=== PATIENT | male | born 1970 | race Caucasian/White ===

== ENCOUNTER 2023-10-27 19:57 | Inpatient (IN) | payer OTHER ==
[2023-10-27] MEDS: cloNIDine HCL 0.1 MG TABLET PO ONE (15:30)
[~2023-10-27 19:57] MED LIST: cloNIDine HCL 0.1 MG TABLET ONE
[2023-10-27] MEDS ORDERED: NALOXONE (NYS OPIOID OVERDOSE PROGRAM) 4 MG/0.1 ML SPRAY NS PRN (20:50)
[2023-10-27] MEDS ORDERED: NALOXONE HCL 0.4 MG/ML VIAL IVPUSH PRN (20:50)
[2023-10-27] MEDS ORDERED: IBUPROFEN 400 MG TABLET (FP) PO PRN (20:50)
[2023-10-27] MEDS ORDERED: guaiFENesin 600 MG TABLET.ER (FP) PO PRN (20:50)
[2023-10-27] MEDS ORDERED: POLYETHYLENE GLYCOL (HEALTHYLAX) 3350 17 GM PACKET PO PRN (20:50)
[2023-10-27] MEDS ORDERED: NICOTINE POLACRILEX 2 MG GUM BUC PRN (20:50)
[2023-10-27] MEDS ORDERED: BENZONATATE 200 MG CAPSULE PO PRN (20:50)
[2023-10-27] MEDS ORDERED: LOPERAMIDE HCL 2 MG CAPSULE PO PRN (20:50)
[2023-10-27] MEDS ORDERED: ACETAMINOPHEN 325 MG TABLET (FP) PO PRN (20:50)
[2023-10-27] MEDS ORDERED: BENZOCAINE/MENTHOL (CHLORASEPTIC ) LOZENGE MM PRN (20:50)
[2023-10-27] MEDS ORDERED: P-EPHED 60MG/TRIPROLIDI 2.5MG TABLET PO PRN (20:50)
[2023-10-27] MEDS ORDERED: DOCUSATE SODIUM 100 MG CAPSULE (FP) PO PRN (20:50)
[2023-10-27] MEDS ORDERED: cloNIDine HCL 0.1 MG TABLET ONE (22:41)
[2023-10-27] MEDS ORDERED: MELATONIN 5 MG TABLETS ONE (22:41)
[2023-10-27] MEDS: THIAMINE 100 MG TABLET PO SCH (22:45)
[2023-10-27] MEDS: MELATONIN 5 MG TABLETS PO SCH (22:45)
[2023-10-27] MEDS: cloNIDine HCL 0.1 MG TABLET PO PRN (22:45)
[2023-10-28] MEDS: PRENATAL VITAMINS W/ FOLIC ACID TABLET (FP) PO SCH (10:08)
[2023-10-28] MEDS ORDERED: methaDONE HCL 10 MG TABLET PO SCH (10:15)
[2023-10-28] MEDS: MAG HYDROX/AL HYDROX/SIMETH 30 ML UNIT-DOSE CUP PO PRN (16:35)
[2023-10-28] MEDS: METHOCARBAMOL 500 MG TABLET PO PRN (21:20)
[2023-10-30] MEDS: MAGNESIUM HYDROX 2400MG/30ML ORAL SUSPENSION 30 ML CUP PO PRN (06:15)
[2023-10-30] MEDS ORDERED: SUCRALFATE 1 GM TABLET (FP) PO PRN (13:58)
[2023-10-30] MEDS: LISINOPRIL 5 MG TABLET PO ONE (14:45)
[2023-10-30] MEDS: PANTOPRAZOLE 20 MG TABLET PO SCH (14:45)
[2023-11-03] MEDS: IBUPROFEN 600 MG TABLET (FP) PO PRN (21:23)
[2023-11-10 07:10] VITALS: TEMP 97.5
[2023-11-10 09:01] VITALS: BP 130/86; PULSE 65; RESP 18
== END 2023-11-10 10:17 | disposition home or self-care (01) | DRG 895 ==
LOC: YASAS 19:57 → Y3W 22:52
PROVIDERS: ADMIT Allergy & Immunology; ATTEND Psychiatry & Neurology Pain Medicine
PROC: HZ42ZZZ Group Counseling for Substance Abuse Treatment, Cognitive-Behavioral (ICD-10-PCS; principal; 2023-10-27)
DX: F14.20 Cocaine dependence, uncomplicated (principal); F11.20 Opioid dependence, uncomplicated; F19.282 Other psychoactive substance dependence with psychoactive substance-induced sleep disorder; Z59.02 Unsheltered homelessness; F17.210 Nicotine dependence, cigarettes, uncomplicated; F43.10 Post-traumatic stress disorder, unspecified; G47.00 Insomnia, unspecified; I10 Essential (primary) hypertension
CPT/HCPCS: 36415; 80053; 80305; 80307; 82550; 82553; 83690; 83735; 84484; 85025; 87811; 93005; 93010; 99284-25; J0131

== ENCOUNTER 2024-04-02 13:38 | Inpatient (IN) | payer OTHER ==
[2024-04-02 14:50] VITALS: BMI 17.7
[2024-04-02] MEDS ORDERED: BENZOCAINE/MENTHOL (CHLORASEPTIC ) LOZENGE MM PRN (15:22)
[2024-04-02] MEDS ORDERED: BENZONATATE 200 MG CAPSULE PO PRN (15:22)
[2024-04-02] MEDS ORDERED: POLYETHYLENE GLYCOL (HEALTHYLAX) 3350 17 GM PACKET PO PRN (15:22)
[2024-04-02] MEDS ORDERED: ACETAMINOPHEN 325 MG TABLET (FP) PO PRN (15:22)
[2024-04-02] MEDS ORDERED: LOPERAMIDE HCL 2 MG CAPSULE PO PRN (15:22)
[2024-04-02] MEDS ORDERED: NALOXONE (NARCAN) HCL 4 MG/0.1 ML SPRAY NS PRN (15:22)
[2024-04-02] MEDS ORDERED: NICOTINE POLACRILEX 2 MG LOZENGE BC PRN (15:22)
[2024-04-02] MEDS ORDERED: MAGNESIUM HYDROX 2400MG/30ML ORAL SUSPENSION 30 ML CUP PO PRN (15:22)
[2024-04-02] MEDS ORDERED: IBUPROFEN 400 MG TABLET (FP) PO PRN (15:22)
[2024-04-02] MEDS ORDERED: guaiFENesin 600 MG TABLET.ER (FP) PO PRN (15:22)
[2024-04-02] MEDS ORDERED: IBUPROFEN 600 MG TABLET (FP) PO PRN (15:22)
[2024-04-02] MEDS ORDERED: NICOTINE POLACRILEX 2 MG GUM BUC PRN (15:22)
[2024-04-02] MEDS: cloNIDine HCL 0.1 MG TABLET PO ONE (16:10)
[2024-04-02 17:40] LABS: HEMATOCRIT 34.2 % (35.4-49); HEMOGLOBIN 11.7 GM/dL (11.7-16.9); MCH 30.7 pg (25.7-33.7); MCHC 34.3 g/dl (32.0-35.9); MEAN CELL VOLUME 89.7 fl (80-96); MEAN PLT VOLUME 7.9 fl (7.5-11.1); PLATELET COUNT 296 10^3/uL (134-434); RBC 3.81 M/mm3 (4.00-5.60); RDW 14.5 % (11.9-15.9); WHITE BLOOD COUNT 6.3 K/mm3 (4.0-10.0)
[2024-04-02 18:06] LABS: BLOOD UREA NITROGEN 31.6 mg/dL (7-18); CALCIUM 9.1 mg/dL (8.5-10.1)
[2024-04-02 18:07] LABS: ALBUMIN 3.4 g/dl (3.4-5.0)
[2024-04-02 18:10] LABS: BILIRUBIN,TOTAL 0.4 mg/dL (0.2-1); CREATININE 1.5 mg/dL (0.55-1.3)
[2024-04-02 18:11] LABS: TOT PROT 5.7 g/dl (6.4-8.2)
[2024-04-02] MEDS: THIAMINE 100 MG TABLET PO SCH (21:36)
[2024-04-02] MEDS: MELATONIN 5 MG TABLETS PO SCH (21:36)
[2024-04-03 00:21] LABS: PH,URINE 6.5 (5.0-8.0); URINE APPEARANCE CLEAR; URINE BILIRUBIN NEGATIVE (NEGATIVE); URINE COLOR YELLOW; URINE GLUCOSE (UA) 1+ (NEGATIVE); URINE KETONE NEGATIVE (NEGATIVE); URINE LEUK ESTERASE NEGATIVE (NEGATIVE); URINE NITRITE NEGATIVE (NEGATIVE); URINE PROTEIN NEGATIVE (NEGATIVE); URINE UROBILINOGEN 0.2 mg/dL (0.2-1.0)
[2024-04-03] MEDS: MAG HYDROX/AL HYDROX/SIMETH 30 ML UNIT-DOSE CUP PO PRN (00:47)
[2024-04-03] MEDS: PRENATAL VITAMINS W/ FOLIC ACID TABLET (FP) PO SCH (10:37)
[2024-04-03] MEDS: methaDONE HCL 40 MG DISPERSABLE TABLET PO SCH (10:37)
[2024-04-06] MEDS ORDERED: TUBERCULIN PPD 5 TU/0.1ML VIAL ID ONE (11:00)
[2024-04-06] MEDS: TUBERCULIN PPD 5 TU/0.1ML VIAL ID ONE (11:03)
[2024-04-07 06:37] VITALS: RESP 18
[2024-04-08 06:53] VITALS: BP 134/89; PULSE 68; TEMP 97.4
[2024-04-08] MEDS: NALOXONE (NYS OPIOID OVERDOSE PROGRAM) 4 MG/0.1 ML SPRAY NS PRN (10:48)
== END 2024-04-08 11:10 | disposition home or self-care (01) | DRG 895 ==
LOC: YASAS 13:38 → Y3NR 16:33 → Y5N 04-05 11:06
PROVIDERS: ADMIT Allergy & Immunology; ATTEND Psychiatry & Neurology Pain Medicine
PROC: HZ42ZZZ Group Counseling for Substance Abuse Treatment, Cognitive-Behavioral (ICD-10-PCS; principal; 2024-04-02)
DX: F14.20 Cocaine dependence, uncomplicated (principal); F11.20 Opioid dependence, uncomplicated; F19.282 Other psychoactive substance dependence with psychoactive substance-induced sleep disorder; Z59.02 Unsheltered homelessness; F17.210 Nicotine dependence, cigarettes, uncomplicated; F43.10 Post-traumatic stress disorder, unspecified; I10 Essential (primary) hypertension
CPT/HCPCS: 36415; 80053; 80305; 80307; 81003; 85027; 87811; 93005; 93010